=== PATIENT | male | born 1985 | race Two or more races ===

== ENCOUNTER 2019-04-03 07:44 | Emergency (ER) | payer OTHER ==
[~2019-04-03] VITALS: Ht 152.4 cm; Wt 56.7 kg
== END 2019-04-03 12:31 | disposition home or self-care (01) ==
LOC: ER 07:44
DX: L02.415 Cutaneous abscess of right lower limb (principal); B95.62 Methicillin resistant Staphylococcus aureus infection as the cause of diseases classified elsewhere

== ENCOUNTER → 2019-05-04 14:13 | Outpatient (CLI) | payer OTHER | END | disposition home or self-care (01) | LOC: LAB 14:13 | DX: L02.415 Cutaneous abscess of right lower limb (principal); B95.61 Methicillin susceptible Staphylococcus aureus infection as the cause of diseases classified elsewhere ==

== ENCOUNTER 2019-05-18 14:21 | Outpatient (CLI) | payer OTHER | END 2019-05-18 16:38 | disposition home or self-care (01) | LOC: LAB 14:21 | DX: L02.415 Cutaneous abscess of right lower limb (principal) ==

== ENCOUNTER 2019-08-03 13:21 | Outpatient (CLI) | payer OTHER | END 2019-08-03 13:27 | disposition home or self-care (01) | LOC: LAB 13:21 | DX: L02.415 Cutaneous abscess of right lower limb (principal) ==